=== PATIENT | male | born 1970 | race African-American/Black ===

== ENCOUNTER 2023-06-26 11:48 | Emergency (ER) | payer OTHER | END 2023-06-26 12:22 | disposition home or self-care (01) | LOC: BURERS 11:48 | DX: J01.90 Acute sinusitis, unspecified (principal) | CPT/HCPCS: 99283 ==

== ENCOUNTER 2024-01-01 14:46 | Emergency (ER) | payer OTHER, SELFPAY | END 2024-01-01 15:15 | disposition home or self-care (01) | LOC: BURERS 14:46 | DX: J01.00 Acute maxillary sinusitis, unspecified (principal) | CPT/HCPCS: 99283 ==